=== PATIENT | male | born 1980 | race Hispanic/Latino ===

== ENCOUNTER 2022-06-28 17:53 | Inpatient (IN) | payer SELFPAY ==
[~2022-06-28 17:53] MED LIST: Iopamidol-370 76% 500 ML 1 ML ONE
[2022-06-28] MEDS ORDERED: Morphine 4 MG/ML VIAL ONE ×2 (18:12→19:17)
[2022-06-28] MEDS ORDERED: Boostrix 0.5 ML (Tdap) VIAL (>/=7 yrs of age) ONE (18:12)
[2022-06-28] MEDS ORDERED: Ondansetron PF 4 MG/2 ML Vial ONE (18:12)
[2022-06-28 18:17] LABS: #Basophils 0.1 thou/uL (0.0-0.2); #Eosinphils 0.3 thou/uL (0.0-0.7); #Lymphocytes 3.9 thou/uL (1.20-3.40); #Monocytes 0.9 thou/uL (0.11-0.59); #Neutrophils 7.8 thou/uL (1.40-6.50); %Basophils 0.4 % (0.0-1.0); %Eosinophils 2.4 % (0.0-10.0); %Lymphocytes 30.1 % (21.0-51.0); %Monocytes 7.1 % (0.0-10.0); %Neutrophils 59.9 % (42.0-75.0); Hemoglobin 15.3 g/dL (14.0-18.0); Mean Corpuscular HGB CONC 33.8 g/dL (32.0-36.0); Mean Corpuscular Hemoglobin 31.4 pg (27.0-31.0); Mean Corpuscular Volume 92.9 fl (78.0-98.0); Mean Platelet Volume 10.6 fL (7.4-10.4); Platelet Count 128 10x3/uL (130-400); Red Blood Cell (RBC) Count 4.89 mill/uL (4.70-6.10)
[2022-06-28 18:27] LABS: INR-International Normal Ratio 1.1; Prothrombin Time 14.7 sec (12.0-14.7)
[2022-06-28 18:37] LABS: ALT (SGPT) 53 U/L (8-55); AST (SGOT) 64 U/L (5-34); Alcohol Less than 10 mg/dL (Less than 10); Alkaline Phosphatase 79 U/L (40-110); Anion Gap 14 mmol/L (10-20); BUN (Urea Nitrogen) 22 mg/dL (8.9-20.6); Bilirubin, Total 0.7 mg/dL (0.2-1.2); Calc. Creatinine Clearance 0 mL/min (70-130); Calcium 9.5 mg/dL (7.8-10.44); Carbon Dioxide 28 mmol/L (22-29); Chloride 101 mmol/L (98-107); Estimated GFR 103; Glucose 149 mg/dL (70-105); Lipase 18 U/L (8-78); Potassium 3.7 mmol/L (3.5-5.1); Sodium 139 mmol/L (136-145)
[2022-06-28] MEDS ORDERED: Ondansetron PF 4 MG/2 ML Vial IVP PRN ×2 (19:40→19:45)
[2022-06-28] MEDS ORDERED: TETANUS, DIPHTHERIA TOX,ADULT (TDVAX) 0.5 ML VIAL IM ONE (19:40)
[2022-06-28] MEDS ORDERED: Naloxone HCl 0.4 mg/ml Vial IV PRN (19:45)
[2022-06-28] MEDS ORDERED: diphenhydrAMINE 50 MG/ML VIAL IM PRN (19:45)
[2022-06-28] MEDS ORDERED: Ketorolac Tromethamine 30 MG/ML VIAL IVP SCH (19:45)
[2022-06-28] MEDS ORDERED: Communication Order-Pharmacy FS SCH (19:45)
[2022-06-28] MEDS ORDERED: Promethazine HCl 25 MG/ML VIAL IM PRN (19:45)
[2022-06-28] MEDS ORDERED: HYDROmorphone 10 mg/100 ml CADD IVPB PRN (19:45)
[2022-06-28] MEDS ORDERED: Zolpidem Tartrate 5 MG TAB PO PRN (19:45)
[2022-06-28] MEDS ORDERED: Famotidine/PF 20 mg/2ml Vial SLOW IVP SCH (21:00)
[2022-06-28] MEDS ORDERED: Pregabalin 50 MG CAP PO SCH (21:00)
[2022-06-28 21:57] VITALS: BMI 27.9
[2022-06-28] MEDS: Sodium Chloride 0.9% 1,000 ML IV SCH (22:13)
[2022-06-28 23:41] LABS: SARS-CoV-2 NAA Rapid Test Not Detected (NotDetected)
[2022-06-29] MEDS: Ketorolac Tromethamine 30 MG/ML VIAL IVP SCH ×3 (02:33→06:09)
[2022-06-29] MEDS: Acetaminophen 500 MG TAB PO SCH ×5 (02:35→23:00)
[2022-06-29] MEDS ORDERED: traMADol HCl 50 MG TAB PO PRN (06:15)
[2022-06-29 06:16] LABS: #Eosinphils 0.2 thou/uL (0.0-0.7); #Lymphocytes 2.2 thou/uL (1.20-3.40); #Monocytes 0.8 thou/uL (0.11-0.59); #Neutrophils 4.2 thou/uL (1.40-6.50); %Basophils 0.4 % (0.0-1.0); %Eosinophils 2.1 % (0.0-10.0); %Lymphocytes 29.5 % (21.0-51.0); %Monocytes 10.2 % (0.0-10.0); %Neutrophils 57.8 % (42.0-75.0); Mean Corpuscular HGB CONC 32.9 g/dL (32.0-36.0); Mean Corpuscular Hemoglobin 31.3 pg (27.0-31.0); Mean Corpuscular Volume 94.9 fl (78.0-98.0); Mean Platelet Volume 10.5 fL (7.4-10.4); Platelet Count 105 10x3/uL (130-400); Red Blood Cell (RBC) Count 4.16 mill/uL (4.70-6.10); White Blood Cell (WBC) Count 7.3 10x3/uL (4.8-10.8)
[2022-06-29 06:32] LABS: INR-International Normal Ratio 1.2; PTT 27.9 sec (22.9-36.1); Prothrombin Time 15.2 sec (12.0-14.7)
[2022-06-29 06:33] LABS: Phosphorus 2.9 mg/dL (2.3-4.7)
[2022-06-29 06:34] LABS: Anion Gap 10 mmol/L (10-20); BUN (Urea Nitrogen) 13 mg/dL (8.9-20.6); Calc. Creatinine Clearance 185 mL/min (70-130); Carbon Dioxide 24 mmol/L (22-29); Chloride 105 mmol/L (98-107); Potassium 3.6 mmol/L (3.5-5.1); Sodium 135 mmol/L (136-145)
[2022-06-29 06:35] LABS: Calcium 8.2 mg/dL (7.8-10.44); Estimated GFR 122; Glucose 120 mg/dL (70-105)
[2022-06-29] MEDS ORDERED: Potassium Phosphate 15 MMOL in Sodium Chloride 0.9% 250 ML 250 ML IVPB SCH (08:30)
[2022-06-29] MEDS: Polyethylene Glycol 3350 17 GM Packet PO SCH (08:55)
[2022-06-29] MEDS: Senokot S 8.6-50 MG TAB PO SCH ×2 (08:55→20:50)
[2022-06-29] MEDS: Gabapentin 300 MG CAP PO SCH ×3 (08:55→20:51)
[2022-06-29] MEDS: Famotidine 20 MG TAB PO SCH ×2 (08:56→20:51)
[2022-06-29] MEDS ORDERED: tiZANidine HCl 4 MG TAB PO SCH (09:00)
[2022-06-29] MEDS: traMADol HCl 50 MG TAB PO SCH ×3 (11:31→23:00)
[2022-06-29] MEDS ORDERED: traMADol HCl 50 MG TAB PO SCH (12:00)
[2022-06-29] MEDS: Sodium Chloride 0.9% 1,000 ML IV SCH (12:14)
[2022-06-29] MEDS: Ibuprofen 600 MG TAB PO SCH ×2 (14:03→20:49)
[2022-06-29] MEDS: Cyclobenzaprine 10 MG TAB PO PRN (20:54)
[2022-06-30] MEDS: traMADol HCl 50 MG TAB PO SCH ×4 (05:16→23:24)
[2022-06-30] MEDS: Acetaminophen 500 MG TAB PO SCH ×4 (05:16→23:23)
[2022-06-30] MEDS: Ibuprofen 600 MG TAB PO SCH ×3 (05:17→20:12)
[2022-06-30 06:39] LABS: #Eosinphils 0.3 thou/uL (0.0-0.7); #Lymphocytes 2.7 thou/uL (1.20-3.40); #Monocytes 0.7 thou/uL (0.11-0.59); #Neutrophils 4.2 thou/uL (1.40-6.50); %Basophils 0.4 % (0.0-1.0); %Eosinophils 3.4 % (0.0-10.0); %Lymphocytes 34.5 % (21.0-51.0); %Monocytes 9.1 % (0.0-10.0); %Neutrophils 52.7 % (42.0-75.0); Hemoglobin 14.7 g/dL (14.0-18.0); Mean Corpuscular HGB CONC 33.3 g/dL (32.0-36.0); Mean Corpuscular Hemoglobin 31.8 pg (27.0-31.0); Mean Corpuscular Volume 95.5 fl (78.0-98.0); Mean Platelet Volume 10.7 fL (7.4-10.4); Platelet Count 104 10x3/uL (130-400); RBC Distribution Width 12.3 % (11.5-14.5); Red Blood Cell (RBC) Count 4.63 mill/uL (4.70-6.10)
[2022-06-30] MEDS ORDERED: Lidocaine 1% w/Epinephrine 1:100K 20 ML VIAL IJ SCH (07:30)
[2022-06-30] MEDS ORDERED: Lidocaine 1% (PF) 30 ML VIAL SC SCH (08:45)
[2022-06-30] MEDS ORDERED: Ketorolac Tromethamine 30 MG/ML VIAL ONE (08:59)
[2022-06-30] MEDS ORDERED: CEFAZOLIN 2 GM in Sodium Chloride 0.9% 100 ML IVPB SCH ×2 (09:45→19:00)
[2022-06-30] MEDS: Gabapentin 300 MG CAP PO SCH ×3 (10:42→20:12)
[2022-06-30] MEDS: Senokot S 8.6-50 MG TAB PO SCH ×2 (10:43→20:12)
[2022-06-30] MEDS: Famotidine 20 MG TAB PO SCH ×2 (10:44→20:12)
[2022-06-30] MEDS: Polyethylene Glycol 3350 17 GM Packet PO SCH (10:46)
[2022-06-30] MEDS: Cyclobenzaprine 10 MG TAB PO PRN ×2 (10:50→20:14)
[2022-06-30] MEDS ORDERED: Morphine 4 MG/ML VIAL ONE (12:32)
[2022-06-30] MEDS ORDERED: Morphine 4 MG/ML VIAL SLOW IVP SCH (12:45)
[2022-07-01] MEDS: Ibuprofen 600 MG TAB PO SCH ×2 (05:31→14:35)
[2022-07-01] MEDS: traMADol HCl 50 MG TAB PO SCH ×3 (05:31→17:30)
[2022-07-01] MEDS: Acetaminophen 500 MG TAB PO SCH ×3 (05:31→17:30)
[2022-07-01] MEDS: Senokot S 8.6-50 MG TAB PO SCH (09:30)
[2022-07-01] MEDS: Gabapentin 300 MG CAP PO SCH ×2 (09:30→14:35)
[2022-07-01] MEDS: Famotidine 20 MG TAB PO SCH (09:31)
[2022-07-01] MEDS: Polyethylene Glycol 3350 17 GM Packet PO SCH (09:31)
[2022-07-01] MEDS: Cyclobenzaprine 10 MG TAB PO PRN (09:31)
[2022-07-01 16:03] VITALS: BP 147/73; TEMP 97.8
== END 2022-07-01 17:30 | disposition home or self-care (01) | DRG 200 ==
LOC: ERS 17:53 → SURG A 19:40
PROVIDERS: ADMIT Surgery; ATTEND Surgery
PROC: 0W9930Z Drainage of Right Pleural Cavity with Drainage Device, Percutaneous Approach (ICD-10-PCS; principal; 2022-06-30)
DX: S27.2XXA Traumatic hemopneumothorax, initial encounter (principal); N17.9 Acute kidney failure, unspecified; S22.41XA Multiple fractures of ribs, right side, initial encounter for closed fracture; W12.XXXA Fall on and from scaffolding, initial encounter; D69.6 Thrombocytopenia, unspecified; R73.9 Hyperglycemia, unspecified; D72.829 Elevated white blood cell count, unspecified; G44.209 Tension-type headache, unspecified, not intractable
CPT/HCPCS: 36415; 70450; 71045; 71260; 72125; 72170; 74177; 80048; 80053; 80307; 83605; 83690; 83735; 84100; 85025; 85610; 85730; 86850; 86900; 86901; 90715; 93005; 94760; 96361; 96374; 96375; 96376; J1650; J1885; J2001; J2270; J2405; J3490; J7050; Q9967; S0028; U0002

== ENCOUNTER 2022-07-15 09:00 | Outpatient (CLI) | payer SELFPAY | END 2022-07-15 09:01 | disposition home or self-care (01) | LOC: RAD 09:00 | PROVIDERS: ATTEND Surgery | DX: J93.9 Pneumothorax, unspecified (principal) | CPT/HCPCS: 71046 ==

== ENCOUNTER 2023-06-05 01:12 | Emergency (ER) | payer SELFPAY ==
[2023-06-05] MEDS ORDERED: Lidocaine 1% MPF 2 ML VIAL ONE (01:27)
[2023-06-05] MEDS ORDERED: HYDROcodone/Acetaminophen 5/325 mg Tablet ONE (01:28)
[2023-06-05] MEDS ORDERED: Ketorolac Tromethamine 30 MG (1 mL) VIAL ONE (01:28)
[2023-06-05] MEDS ORDERED: cefTRIAXone (ROCEPHIN) 1 GM VIAL ONE (01:28)
== END 2023-06-05 01:51 | disposition home or self-care (01) ==
LOC: ERS 01:12
DX: H92.01 Otalgia, right ear (principal); H66.012 Acute suppurative otitis media with spontaneous rupture of ear drum, left ear
CPT/HCPCS: 96372; 99282; J0696; J1885

== ENCOUNTER 2023-06-10 18:48 | Emergency (ER) | payer SELFPAY ==
[2023-06-10] MEDS ORDERED: Ketorolac Tromethamine 30 MG (1 mL) VIAL ONE (19:15)
== END 2023-06-10 19:39 | disposition home or self-care (01) ==
LOC: ERS 18:48
DX: H66.012 Acute suppurative otitis media with spontaneous rupture of ear drum, left ear (principal)
CPT/HCPCS: 96372; 99282; J1885

== ENCOUNTER 2023-09-27 18:59 | Emergency (ER) | payer SELFPAY ==
[2023-09-27] MEDS ORDERED: Bupivacaine 0.25% 10 ML VIAL ONE (22:08)
[2023-09-27] MEDS ORDERED: Bupivacaine PF 0.5% 30 ML VIAL ONE (22:09)
== END 2023-09-27 23:50 | disposition home or self-care (01) ==
LOC: ERS 18:59
DX: S63.285A Dislocation of proximal interphalangeal joint of left ring finger, initial encounter (principal); W21.01XA Struck by football, initial encounter; Y93.61 Activity, american tackle football
CPT/HCPCS: 26770; J0665